=== PATIENT | male | born 1995 ===

== ENCOUNTER 2019-02-01 06:32 | Day surgery (SDC) | payer OTHER ==
[2019-02-01] VITALS (12 sets, daily range): BP systolic 125–138; BP diastolic 60–88
[~2019-02-01] VITALS: Ht 154.9 cm; Wt 74.4 kg
[~2019-02-01 06:32] MED LIST: NKM; ceFAZolin 1gm IVPB IVPB ONE; celeBREX 200mg Cap **SURGERY PATIENTS ONLY ORAL ONE; oxyCONTIN 20mg tab ORAL ONE
[2019-02-01] MEDS ORDERED: fentaNYL 100 mcg/2 mL IV PRN (07:30)
--- NOTE | 2019-02-01 07:30 | NUR ---
IV LR WAS STARTED BY CELESTINA ESTRADA RN. NO S/S OF INFILTRATION.
[2019-02-01] MEDS ORDERED: Kenalog-40 1ml Vial ONE (07:32)
[2019-02-01] MEDS ORDERED: EPINEPHrine 1mg/1ml Amp ONE (07:32)
[2019-02-01] MEDS ORDERED: Duramorph PF 5mg/10ml amp ONE (07:33)
[2019-02-01] MEDS ORDERED: Lidocaine 1% 10mg/ml/Epi 0.005mg/ml 30ml vial INJ ONE (07:33)
[2019-02-01] MEDS ORDERED: Bupivacaine w/Epi 0.5% 30ml Vial INJ ONE (07:33)
[2019-02-01] MEDS ORDERED: Bupivacaine 0.25% Inj 30ml INJ ONE (07:33)
[2019-02-01] MEDS ORDERED: NS Irrig 4000ml IRRIG ONE (08:00)
[2019-02-01] MEDS ORDERED: LR 1000ml ONE (08:00)
[2019-02-01] MEDS ORDERED: fentaNYL 100 mcg/2 mL ONE (08:03)
[2019-02-01] MEDS ORDERED: Midazolam 2mg/2ml Inj ONE (08:03)
[2019-02-01] MEDS ORDERED: Tylenol #3 tab (300mg/30mg) ORAL PRN (08:15)
[2019-02-01] MEDS ORDERED: D5 1/2NS 1,000 ML IV SCH (08:15)
[2019-02-01] MEDS ORDERED: HYDROmorphone 1mg/ml Carpuject SUBQ PRN (08:15)
[2019-02-01] MEDS ORDERED: HYDROcodone/Acetamin 5/325 tab ORAL PRN (08:15)
--- NOTE | 2019-02-01 08:15 | Pre-Procedure Note/Attestation ---
Pre-Procedure Note/Attestation Complete Prior to Procedure Planned Procedure: right Procedure Narrative: knee diagnostic arthroscopy, possible menisectomy, possible synovectomy Attestation I attest that I discussed the nature of the procedure; its benefits; risks and complications; and alternatives (and the risks and benefits of such alternatives ), prior to the procedure, with the patient (or the patient's legal retail sales representative). I attest that, if there was a reasonable possibility of needing a blood transfusion, the patient (or the patient's legal retail sales representative) was given the [facility] standardized written summary, pursuant to the [employer] [place] Blood Safety Act ([place] Health and Safety Code # 1645, as amended). I attest that I re-evaluated the patient just prior to the surgery and that there has been no change in the patient's H&P, except as documented below: Aashish Fox MD Feb 01, 2019 08:15
--- NOTE | 2019-02-01 08:17 | Operative Note - PDOC ---
Operative Note Operative Note Pre-op Diagnosis: right knee internal deragment Procedure: see op report Post-op Diagnosis: same as pre-op plus Operative Findings: consistent w/pre-op dx studies Anesthesia: MAC Specimen: none Complications: none Condition: stable Estimated Blood Loss: none Implant(s) used?: No Aashish Fox MD Feb 01, 2019 08:17
--- NOTE | 2019-02-01 08:20 | Anethesia Preoperative Eval ---
Anesthesia Pre-op PMH/ROS General Date of Evaluation: Feb 01, 2019 Time of Evaluation: 08:18 Anesthesiologist: ashlyn ASA Score: ASA 1 Mallampati Score Class I : Soft palate, uvula, fauces, pillars visible Class II: Soft palate, uvula, fauces visible Class III: Soft palate, base of uvula visible Class IV: Only hard plate visible Mallampati Classification: Class II Surgeon: dallas Diagnosis: knee pain Surgical Procedure: knee scope Anesthesia History: none Family History: no anesthesia problems Allergies: Coded Allergies: No Known Allergies (Unverified , 01/31/19) Medications: see eMAR Patient NPO?: Yes NPO Date: Feb 01, 2019 NPO Time: 00:01 Past Medical History Cardiovascular: Denies: HTN, CAD, DE, valve dz, arrhythmia, other Pulmonary: Denies: asthma, COPD, PARISH, other Gastrointestinal/Genitourinary: Denies: GERD, CRI, ESRD, other Neurologic/Psychiatric: Denies: dementia, CVA, depression/anxiety, TIA, other Endocrine: Denies: DM, hypothyroidism, steroids, other HEENT: Denies: cataract (L), cataract (R), glaucoma, MAKAH (L), MAKAH (R), other Hematology/Immune: Denies: anemia, DVT, bleeding disorder, other Musculoskeletal/Integumentary: Denies: OA, RA, DJD, DDD, edema, other Anesthesia Pre-op Phys. Exam Physician Exam Last Vital Signs Date Time Temp Pulse Resp B/P (MAP) Pulse Ox O2 Delivery O2 Flow Rate FiO2 02/01/19 07:30 97.3 72 20 137/80 100 Room Air Constitutional: NAD Neurologic: CN 2-12 intact Cardiovascular: RRR Respiratory: CTA Gastrointestinal: S/NT/ND Airway Exam Mallampati Classification 2 Mallampati Score: Class II MO: full Neck: thick TMD: 2fb Dentures: no upper, no lower Anesthesia Pre-op A/P Studies Pre-op Studies: EKG - SR Risk Assessment & Plan Plan: general LMA Status Change Before Surgery: No Pre-Antibiotics Drug: ancef Given Within 1 Hr of Incision: Yes Time Given: 08:50 Berkley Wagner CRNA Feb 01, 2019 08:20
[2019-02-01] MEDS ORDERED: Metoclopramide 10mg/2ml Inj ONE (08:45)
[2019-02-01] MEDS ORDERED: Propofol 200mg/20ml IV ONE (08:45)
[2019-02-01] MEDS ORDERED: Lidocaine 1% MPF 10mg/ml 5ml ONE (08:45)
[2019-02-01] MEDS: Ketorolac 30mg Inj IV PRN ×2 (09:00→09:51)
--- NOTE | 2019-02-01 09:23 | Immediate Post-Op Evaluation ---
Immediate Post-Op Evalulation Immediate Post-Op Evalulation Procedure: right knee scope Date of Evaluation: Feb 01, 2019 Time of Evaluation: 09:23 IV Fluids: 500 Blood Products: 0 Blood Pressure Systolic: 132 Blood Pressure Diastolic: 76 Pulse Rate: 83 Respiratory Rate: 14 O2 Sat by Pulse Oximetry: 100 Temperature (Fahrenheit): 97.4 Nausea: No Vomiting: No Complications none Patient Status: awake, reacts, patent Hydration Status: adequate Drug: ancef Given Within 1 Hr of Incision: Yes Time Given: 08:50 Berkley Wagner CRNA Feb 01, 2019 09:23
--- NOTE | 2019-02-01 11:46 | 48 Hour Post Anesthesia Eval ---
Post Anesthesia Evaluation Procedure: right knee scope Date of Evaluation: Feb 01, 2019 Time of Evaluation: 11:46 Blood Pressure Systolic: 135 0: 78 Pulse Rate: 86 Respiratory Rate: 14 O2 Sat by Pulse Oximetry: 98 Airway: patent Nausea: No Vomiting: No Hydration Status: adequate Cardiopulmonary Status: stable Mental Status/LOC: patient returned to baseline Post-Anesthesia Complications: none Follow-up care needed: N/A Berkley Wagner CRNA Feb 01, 2019 11:46
--- NOTE | 2019-02-01 16:45 | Operative Note - Dictated ---
DATE OF OPERATION: 02/01/2019 PREOPERATIVE DIAGNOSES: 1. 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 2. Periarticular ganglion cyst. 3. Lateral patellar retinaculum tear. POSTOPERATIVE DIAGNOSES: 1. 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 2. Periarticular ganglion cyst. 3. Lateral patellar retinaculum tear. PROCEDURES: 1. Right knee diagnostic arthroscopy. 2. Synovectomy of the medial and lateral patellofemoral compartment. SURGEON: Aashish Fox M.D. ANESTHESIA: General. INDICATION FOR PROCEDURE: The patient is a pleasant gentleman, who has significant right knee tear of the lateral retinaculum and associated ganglion cyst. He continued to have anterior knee pain. He failed conservative treatment including cortisone injection. He did have positive response temporarily to the cortisone injection. He elected to undergo right knee arthroscopy, possible synovectomy, and excision of the fat pad. Based on intraoperative findings, additional treatment including meniscectomy and chondroplasty may have been indicated. Risks, limitations, expectations, and complications of the procedure were discussed in detail. All questions addressed. DESCRIPTION OF PROCEDURE: After informed consent was obtained, the patient was brought to the operating room and placed under general anesthesia. Right leg was prepped and draped in a sterile manner. Time-out was performed. Ancef was administered. An inferolateral stab incision was then made. Trocar was introduced into the patellofemoral compartment. There is hypertrophic fat pad in the patellofemoral compartment. Medial gutter was visualized and of any loose bodies. Medial compartment was entered. The meniscus and cartilage appeared to be intact. Medial working portal was established. Synovectomy of the anterior part of the medial compartment was performed as well as of the anterior compartment, which was intact. The excision of the fat pad and synovectomy was extended into the intercondylar notch of the lateral compartment where there was concern about the ganglion cyst. The ACL was probed and noted to be intact. Lateral compartment was entered and free of any meniscal chondral damage. Given tear of the lateral retinaculum as well as the ganglion cyst, the camera was placed in the medial working portal and a shaver was then placed in the lateral portal completing the excision of the fat pad and synovial tissue and extending to the lateral gutter. Once this was done, the camera was repositioned in the patellofemoral compartment. Excision of the fat pad and synovial tissue was completed. Once this was done, the instruments were removed. Portal sites were closed with 3-0 Monocryl sutures. Steri-Strips and a sterile dressing were applied. The patient was awoken and taken to recovery room with stable vital signs. EBL: None. COMPLICATIONS: None. SPECIMENS: None. IMPLANTS: None. Aashish Fox M.D. DR: BERENICE JOB#: [id number] CC:
== END 2019-02-01 11:15 | disposition home or self-care (01) ==
LOC: SUR 06:32
DX: M23.91 Unspecified internal derangement of right knee (principal); M67.461 Ganglion, right knee; S83.422A Sprain of lateral collateral ligament of left knee, initial encounter
CPT/HCPCS: 29876; J0171; J0690; J1885; J2250; J2405; J2704; J2765; J3010; J3301; J3490; 94003; 94150